=== PATIENT | male | born 1960 | race African-American/Black ===

== ENCOUNTER 2016-10-22 12:15 | Inpatient (IN) | payer OTHER ==
[~2016-10-22] VITALS: Ht 182.9 cm; Wt 99.4 kg
[~2016-10-22 12:15] MED LIST: CEPH-569 PO; CLON0.1T PO; GABA800T PO; HYDR-519 PO; LABE200T28 PO; QUIN1TAB16 PO
[2016-10-22] MEDS ORDERED: MORPHINE SULFATE 4 MG/ML CPJ (NOT FOR IM USE) IV STA (17:11)
[2016-10-22] MEDS ORDERED: SODIUM CHLORIDE 0.9% 1,000 ML IV ONE (17:11)
[2016-10-22 18:02] LABS: BASOPHILS % 0.3 % (0.0-2.0); EOSINOPHILS % 1.4 % (0.0-5.0); HEMATOCRIT. 31.4 % (42.0-52.0); HEMOGLOBIN. 10.8 g/dL (14.0-18.0); LYMPHOCYTES % 55.3 % (20.0-50.0); MEAN CORPUSCULAR HEMOGLOBIN 32.4 pg (28.0-32.0); MEAN CORPUSCULAR VOLUME 94.2 fL (80.0-94.0); PLATELET 109 x1000/uL (130-400); RED BLOOD CELL COUNT 3.33 mill/uL (4.7-6.1); RED CELL DISTRIBUTION WIDTH 13.1 % (11.6-14.6)
[2016-10-22 18:07] LABS: CHLORIDE 103 mEq/L (98-107); INR 1.1; PROTHROMBIN TIME 11.1 sec
[2016-10-22 18:15] LABS: CARBON DIOXIDE 30 mEq/L (21-32)
[2016-10-22 18:25] LABS: CLARITY URINE CLEAR (CLEAR); COLOR URINE YELLOW (YELLOW); GLUCOSE URINE NEGATIVE (NEGATIVE); KETONES URINE NEGATIVE (NEGATIVE); LEUKOCYTE ESTERASE URINE NEGATIVE (NEGATIVE); NITRITE URINE NEGATIVE (NEGATIVE); OCCULT BLOOD URINE 1+ (NEGATIVE); PH URINE 5.5 (4.5-8.0); PROTEIN URINE TRACE (NEGATIVE); SPECIFIC GRAVITY URINE 1.032 (1.005-1.030)
[2016-10-22] MEDS ORDERED: ACETAMINOPHEN 650MG SUPP PR PRN (20:15)
[2016-10-22] MEDS ORDERED: IPRATROPIUM/ALBUTEROL 0.5-3(2.5)MG/3ML NEB INH PRN (20:15)
[2016-10-22] MEDS ORDERED: DIPHENHYDRAMINE 50MG/ML VIAL IV PRN (20:15)
[2016-10-22] MEDS ORDERED: ONDANSETRON HCL 4MG/2ML VIAL IV PRN (20:15)
[2016-10-22] MEDS ORDERED: MORPHINE SULFATE 4 MG/ML CPJ (NOT FOR IM USE) IV ONE (20:30)
[2016-10-22] MEDS ORDERED: DEXT 5%/LACTATED RINGERS 1,000 ML IV SCH (21:00)
[2016-10-23] VITALS (72 sets, daily range): BP systolic 85–175; BP diastolic 48–133
[2016-10-23] MEDS ORDERED: MORPHINE SULFATE 4 MG/ML CPJ (NOT FOR IM USE) IV ONE (00:30)
[2016-10-23] MEDS: HYDROMORPHONE HCL/PF 2MG/ML CPJ IV PRN ×6 (03:02→22:18)
[2016-10-23] MEDS ORDERED: NORMAL SALINE 0.9% 10 ML SYR ONE (07:48)
[2016-10-23] MEDS ORDERED: THROMBIN (BOVINE) 5000 UNITS/VIAL TOP ONE (07:48)
[2016-10-23] MEDS ORDERED: GELATIN SPONGE,ABSORBABLE SZ 100 ONE (07:48)
[2016-10-23] MEDS ORDERED: BACITRACIN 50,000 UNITS/VIAL ONE (07:49)
[2016-10-23] MEDS ORDERED: LIDOCAINE HCL/EPINEPHRINE 0.5%-EPI 1:200,000 50 ML VIAL INFIL ONE (07:49)
[2016-10-23] MEDS: LABETALOL HCL 200MG TABLET PO SCH (09:00)
[2016-10-23] MEDS: CLONIDINE 0.1MG TABLET PO SCH ×2 (09:00→20:33)
[2016-10-23] MEDS: LISINOPRIL 20MG TABLET PO SCH (09:00)
[2016-10-23] MEDS ORDERED: MEDICATION NOT ON FORMULARY EA (Gabapentin (Neurontin) 1 TAB) PO SCH (09:00)
[2016-10-23] MEDS: GABAPENTIN 400MG CAPSULE PO SCH ×5 (09:00→16:12)
[2016-10-23] MEDS: HYDROCHLOROTHIAZIDE 12.5MG CAPSULE PO SCH (09:00)
[2016-10-23] MEDS ORDERED: NICARDIPINE 50 MG in SODIUM CHLORIDE 0.9% 230 ML IV PRN (10:30)
[2016-10-23] MEDS ORDERED: PROPOFOL 200MG/20ML VIAL IV ONE (10:56)
[2016-10-23] MEDS ORDERED: DEXAMETHASONE 4MG/ML 1ML VIAL ONE (10:56)
[2016-10-23] MEDS ORDERED: ROCURONIUM BROMIDE 10MG/ML VIAL 5ML IV ONE ×2 (10:56→11:15)
[2016-10-23] MEDS ORDERED: HYDROMORPHONE HCL/PF 2MG/ML (OR) ONE (11:12)
[2016-10-23] MEDS ORDERED: HYDROMORPHONE HCL/PF 2MG/ML CPJ IV PRN (11:30)
[2016-10-23] MEDS ORDERED: ONDANSETRON HCL 4MG/2ML VIAL IV PRN (11:30)
[2016-10-23] MEDS ORDERED: LABETALOL HCL 20MG/4ML CARPUJECT IV PRN (11:30)
[2016-10-23] MEDS ORDERED: MEPERIDINE HCL/PF 25MG/ML CPJ IV PRN (11:30)
[2016-10-23] MEDS ORDERED: NEOSTIGMINE METHYLSULFATE 1MG/ML 10 ML VIAL ONE (12:16)
[2016-10-23] MEDS ORDERED: GLYCOPYRROLATE 0.2 MG/ML 2ML VIAL ONE (12:17)
[2016-10-23] MEDS ORDERED: DEXT 5%/LACTATED RINGERS 1,000 ML IV SCH (12:45)
[2016-10-23] MEDS ORDERED: DIPHENHYDRAMINE INJ IV PRN (13:15)
[2016-10-23] MEDS ORDERED: ONDANSETRON INJ IV PRN (13:15)
[2016-10-23] MEDS ORDERED: NALOXONE INJ IV PRN (13:15)
[2016-10-23] MEDS ORDERED: HYDROMORPHONE PCA 10MG/50ML IV PRN (13:15)
[2016-10-23] MEDS: MORPHINE SULFATE 2 MG/ML CPJ (NOT FOR IM USE) IV PRN ×3 (13:45→23:28)
[2016-10-23] MEDS: CEFAZOLIN 1000MG PREMIX 50 ML IV SCH ×2 (13:47→21:09)
[2016-10-23] MEDS: DEXAMETHASONE 4MG/ML 1ML VIAL IV SCH ×3 (13:47→23:25)
[2016-10-23] MEDS ORDERED: CEFAZOLIN SODIUM 1000MG/VIAL IV SCH (14:00)
[2016-10-23] MEDS ORDERED: IPRATROPIUM/ALBUTEROL 0.5-3(2.5)MG/3ML NEB HHN PRN (16:00)
[2016-10-23] MEDS: NICARDIPINE 100 MG in SODIUM CHLORIDE 0.9% 60 ML IV PRN ×2 (16:30→23:28)
[2016-10-23 17:47] LABS: *AMPHETAMINES SCREEN URINE NEGATIVE (NEGATIVE); *BARBITURATES SCREEN URINE NEGATIVE (NEGATIVE); *BENZODIAZEPINES SCREEN URINE NEGATIVE (NEGATIVE); *COCAINE SCREEN URINE NEGATIVE (NEGATIVE); CANNABINOID URINE SCREEN NEGATIVE (NEGATIVE); METHADONE URINE SCREEN NEGATIVE (NEGATIVE); OPIATES URINE SCREEN PRESUMTIVE POSITIVE (NEGATIVE); PHENCYCLIDINE URINE SCREEN NEGATIVE (NEGATIVE)
[2016-10-23] MEDS: HYDROCODONE/ACETAMINOPHEN 10/325MG TABLET PO PRN (19:43)
[2016-10-23] MEDS ORDERED: [UNRECOGNIZED DRUG - OTHER] PO SCH (21:00)
[2016-10-23] MEDS ORDERED: QUINAPRIL PO SCH (21:00)
[2016-10-23] MEDS ORDERED: HYDROCHLOROTHIAZIDE PO SCH (21:00)
[2016-10-24] VITALS (82 sets, daily range): BP systolic 111–179; BP diastolic 63–100
[2016-10-24] MEDS: HYDROMORPHONE HCL/PF 2MG/ML CPJ IV PRN ×10 (00:32→23:32)
[2016-10-24] MEDS: MORPHINE SULFATE 2 MG/ML CPJ (NOT FOR IM USE) IV PRN ×4 (01:31→07:57)
[2016-10-24] MEDS: IPRATROPIUM/ALBUTEROL 0.5-3(2.5)MG/3ML NEB HHN SCH ×3 (02:27→20:00)
[2016-10-24] MEDS: HYDROCODONE/ACETAMINOPHEN 10/325MG TABLET PO PRN ×2 (05:19→21:52)
[2016-10-24] MEDS: DEXAMETHASONE 4MG/ML 1ML VIAL IV SCH ×4 (05:27→23:34)
[2016-10-24] MEDS: CEFAZOLIN 1000MG PREMIX 50 ML IV SCH ×3 (05:27→21:34)
[2016-10-24] MEDS: OMEPRAZOLE 20MG CAPSULE EXTENDED RELEASE PO SCH (06:38)
[2016-10-24] MEDS: NICARDIPINE 100 MG in SODIUM CHLORIDE 0.9% 60 ML IV PRN (07:56)
[2016-10-24] MEDS: HYDROCHLOROTHIAZIDE 12.5MG CAPSULE PO SCH (08:00)
[2016-10-24] MEDS: LABETALOL HCL 200MG TABLET PO SCH (08:00)
[2016-10-24] MEDS: GABAPENTIN 400MG CAPSULE PO SCH ×3 (08:00→17:34)
[2016-10-24] MEDS: CLONIDINE 0.1MG TABLET PO SCH ×2 (08:01→21:35)
[2016-10-24] MEDS: LISINOPRIL 20MG TABLET PO SCH (08:01)
[2016-10-24] MEDS: BUDESONIDE 0.5MG/2ML NEB HHN SCH ×2 (08:46→20:00)
[2016-10-24 09:11] LABS: HEMATOCRIT 30.2 % (42.0-52.0); HEMOGLOBIN 10.2 g/dL (14.0-18.0); MEAN CORPUSCULAR HEMOGLOBIN 31.8 pg (28.0-32.0); MEAN CORPUSCULAR VOLUME 94.3 fL (80.0-94.0); PLATELET 106 x1000/uL (130-400); RED BLOOD CELL COUNT 3.21 mill/uL (4.7-6.1); RED CELL DISTRIBUTION WIDTH 12.8 % (11.6-14.6)
[2016-10-24] MEDS: SENNOSIDES/DOCUSATE SOD 8.6/50MG TABLET PO SCH (21:35)
[2016-10-25] VITALS (30 sets, daily range): BP systolic 102–159; BP diastolic 27–98
[2016-10-25] MEDS: HYDROMORPHONE HCL/PF 2MG/ML CPJ IV PRN ×10 (01:36→21:49)
[2016-10-25] MEDS: IPRATROPIUM/ALBUTEROL 0.5-3(2.5)MG/3ML NEB HHN SCH ×5 (02:02→20:44)
[2016-10-25] MEDS: CEFAZOLIN 1000MG PREMIX 50 ML IV SCH ×2 (05:29→13:56)
[2016-10-25] MEDS: OMEPRAZOLE 20MG CAPSULE EXTENDED RELEASE PO SCH (05:30)
[2016-10-25] MEDS: DEXAMETHASONE 4MG/ML 1ML VIAL IV SCH ×2 (05:30→11:50)
[2016-10-25 05:32] LABS: BASOPHILS % 0.1 % (0.0-2.0); HEMATOCRIT. 29.5 % (42.0-52.0); HEMOGLOBIN. 10.1 g/dL (14.0-18.0); LYMPHOCYTES % 22.2 % (20.0-50.0); MEAN CORPUSCULAR HEMOGLOBIN 32.1 pg (28.0-32.0); MEAN CORPUSCULAR VOLUME 93.8 fL (80.0-94.0); MEAN PLATELET VOLUME 8.5 fl (7.4-10.4); MONOCYTES % 4.6 % (2.0-8.0); NEUTROPHILS % 73.1 % (40.0-76.0); PLATELET 108 x1000/uL (130-400); RED BLOOD CELL COUNT 3.14 mill/uL (4.7-6.1); RED CELL DISTRIBUTION WIDTH 13.1 % (11.6-14.6)
[2016-10-25 05:59] LABS: CARBON DIOXIDE 30 mEq/L (21-32); CHLORIDE 93 mEq/L (98-107)
[2016-10-25] MEDS: HYDROCHLOROTHIAZIDE 12.5MG CAPSULE PO SCH (08:00)
[2016-10-25] MEDS: LABETALOL HCL 200MG TABLET PO SCH (08:00)
[2016-10-25] MEDS: LISINOPRIL 20MG TABLET PO SCH (08:00)
[2016-10-25] MEDS: GABAPENTIN 400MG CAPSULE PO SCH ×3 (08:01→16:05)
[2016-10-25] MEDS: CLONIDINE 0.1MG TABLET PO SCH ×2 (08:01→21:49)
[2016-10-25] MEDS: HYDROCODONE/ACETAMINOPHEN 10/325MG TABLET PO PRN ×3 (09:07→23:01)
[2016-10-25] MEDS: BUDESONIDE 0.5MG/2ML NEB HHN SCH ×2 (10:39→20:47)
[2016-10-25] MEDS: SENNOSIDES/DOCUSATE SOD 8.6/50MG TABLET PO SCH (21:49)
[2016-10-26] VITALS: BP 144/96
[2016-10-26] MEDS: HYDROMORPHONE HCL/PF 2MG/ML CPJ IV PRN ×11 (00:32→23:08)
[2016-10-26] MEDS: IPRATROPIUM/ALBUTEROL 0.5-3(2.5)MG/3ML NEB HHN SCH ×4 (01:50→21:32)
[2016-10-26 04:00] VITALS: BP 141/72
[2016-10-26] MEDS: OMEPRAZOLE 20MG CAPSULE EXTENDED RELEASE PO SCH (07:42)
[2016-10-26 08:00] VITALS: BP 137/66
[2016-10-26 08:39] LABS: BASOPHILS % 0.1 % (0.0-2.0); HEMATOCRIT. 30.4 % (42.0-52.0); HEMOGLOBIN. 10.4 g/dL (14.0-18.0); LYMPHOCYTES % 33.9 % (20.0-50.0); MEAN CORPUSCULAR HEMOGLOBIN 32.1 pg (28.0-32.0); MEAN CORPUSCULAR VOLUME 93.6 fL (80.0-94.0); MEAN PLATELET VOLUME 8.7 fl (7.4-10.4); MONOCYTES % 6.6 % (2.0-8.0); NEUTROPHILS % 59.4 % (40.0-76.0); PLATELET 119 x1000/uL (130-400); RED BLOOD CELL COUNT 3.25 mill/uL (4.7-6.1); RED CELL DISTRIBUTION WIDTH 13.1 % (11.6-14.6)
[2016-10-26] MEDS: BUDESONIDE 0.5MG/2ML NEB HHN SCH ×2 (08:44→21:00)
[2016-10-26 08:51] LABS: CARBON DIOXIDE 31 mEq/L (21-32); CHLORIDE 92 mEq/L (98-107)
[2016-10-26] MEDS: GABAPENTIN 400MG CAPSULE PO SCH ×3 (09:23→17:38)
[2016-10-26] MEDS: HYDROCHLOROTHIAZIDE 12.5MG CAPSULE PO SCH (09:24)
[2016-10-26] MEDS: CLONIDINE 0.1MG TABLET PO SCH ×2 (09:24→20:21)
[2016-10-26] MEDS: LABETALOL HCL 200MG TABLET PO SCH (09:24)
[2016-10-26] MEDS: LISINOPRIL 20MG TABLET PO SCH (09:52)
[2016-10-26 12:00] VITALS: BP 91/68
[2016-10-26 16:00] VITALS: BP 135/82
[2016-10-26 20:00] VITALS: BP 120/75
[2016-10-26] MEDS: SENNOSIDES/DOCUSATE SOD 8.6/50MG TABLET PO SCH (20:21)
[2016-10-27] VITALS (7 sets, daily range): BP systolic 92–147; BP diastolic 68–93
[2016-10-27] MEDS: HYDROMORPHONE HCL/PF 2MG/ML CPJ IV PRN ×12 (01:08→23:35)
[2016-10-27] MEDS: IPRATROPIUM/ALBUTEROL 0.5-3(2.5)MG/3ML NEB HHN SCH ×4 (02:55→20:55)
[2016-10-27] MEDS: OMEPRAZOLE 20MG CAPSULE EXTENDED RELEASE PO SCH (07:06)
[2016-10-27] MEDS: CLONIDINE 0.1MG TABLET PO SCH ×3 (09:00→21:49)
[2016-10-27] MEDS: HYDROCHLOROTHIAZIDE 12.5MG CAPSULE PO SCH (09:06)
[2016-10-27] MEDS: LABETALOL HCL 200MG TABLET PO SCH (09:07)
[2016-10-27] MEDS: GABAPENTIN 400MG CAPSULE PO SCH ×3 (09:07→17:04)
[2016-10-27] MEDS: LISINOPRIL 20MG TABLET PO SCH (09:08)
[2016-10-27] MEDS: SENNOSIDES/DOCUSATE SOD 8.6/50MG TABLET PO SCH (21:24)
[2016-10-28] VITALS: BP 97/54
[2016-10-28] MEDS: IPRATROPIUM/ALBUTEROL 0.5-3(2.5)MG/3ML NEB HHN SCH ×2 (02:08→09:07)
[2016-10-28] MEDS: HYDROMORPHONE HCL/PF 2MG/ML CPJ IV PRN ×4 (02:16→11:21)
[2016-10-28 04:00] VITALS: BP 135/81
[2016-10-28 08:00] VITALS: BP 109/72
[2016-10-28] MEDS: LISINOPRIL 20MG TABLET PO SCH (08:57)
[2016-10-28] MEDS: GABAPENTIN 400MG CAPSULE PO SCH ×2 (08:59→13:39)
[2016-10-28] MEDS: LABETALOL HCL 200MG TABLET PO SCH (09:00)
[2016-10-28] MEDS ORDERED: FAMOTIDINE 20MG TABLET PO SCH (09:00)
[2016-10-28] MEDS: CLONIDINE 0.1MG TABLET PO SCH (09:01)
[2016-10-28] MEDS: HYDROCHLOROTHIAZIDE 12.5MG CAPSULE PO SCH (09:07)
[2016-10-28 12:00] VITALS: BP 98/59
[2016-10-28 15:04] VITALS: BP 90/59
== END 2016-10-28 16:07 | disposition home or self-care (01) | DRG 460 ==
LOC: ER 12:15 → 6EST 21:41 → MICUNO 10-23 10:57 → 6EST 10-25 16:49
PROVIDERS: ADMIT Internal Medicine Nephrology; ATTEND Internal Medicine Nephrology
PROC: 0RG60A1 (ICD-10-PCS; 2016-10-23)
PROC: 00NX0ZZ Release Thoracic Spinal Cord, Open Approach (ICD-10-PCS; principal; 2016-10-23 09:30)
DX: M51.04 Intervertebral disc disorders with myelopathy, thoracic region (principal); C85.90 Non-Hodgkin lymphoma, unspecified, unspecified site; G82.20 Paraplegia, unspecified; I10 Essential (primary) hypertension; D64.9 Anemia, unspecified; M48.04 Spinal stenosis, thoracic region; F17.210 Nicotine dependence, cigarettes, uncomplicated; G89.29 Other chronic pain; G62.89 Other specified polyneuropathies; W19.XXXA Unspecified fall, initial encounter; J44.9 Chronic obstructive pulmonary disease, unspecified; M54.12 Radiculopathy, cervical region; Z86.14 Personal history of Methicillin resistant Staphylococcus aureus infection; Z85.6 Personal history of leukemia; Z92.21 Personal history of antineoplastic chemotherapy; Z79.1 Long term (current) use of non-steroidal anti-inflammatories (NSAID); Z79.899 Other long term (current) drug therapy; Z90.49 Acquired absence of other specified parts of digestive tract
CPT/HCPCS: 36415; 71010; 72070; 72146; 80048; 80053; 80305; 81001; 83690; 83735; 85025; 85027; 85610; 88304; 88311; 93005; 93970; 94640; 96361; 96374; 96375; 96376; 97110; 97116; 97163; 97166; 97530; 97535; 99285; A4216; C1893; J0690; J1100; J1170; J2270; J2405; J2704; J2710; J3490; J7030; J7050; J7620; J7626

== ENCOUNTER 2017-03-06 14:45 | Inpatient (IN) | payer OTHER ==
[~2017-03-06] VITALS: Ht 182.9 cm; Wt 112.2 kg
[~2017-03-06 14:45] MED LIST changes: -CEPH-569 PO; -HYDR-519 PO
[2017-03-06 17:00] LABS: BASOPHILS % 0.4 % (0.0-2.0); EOSINOPHILS % 1.6 % (0.0-5.0); HEMATOCRIT. 36.4 % (42.0-52.0); HEMOGLOBIN. 12.4 g/dL (14.0-18.0); LYMPHOCYTES % 47.7 % (20.0-50.0); MEAN CORPUSCULAR HEMOGLOBIN 31.9 pg (28.0-32.0); MEAN CORPUSCULAR VOLUME 93.6 fL (80.0-94.0); MEAN PLATELET VOLUME 7.5 fl (7.4-10.4); MONOCYTES % 6.4 % (2.0-8.0); NEUTROPHILS % 43.9 % (40.0-76.0); PLATELET 144 x1000/uL (130-400); RED BLOOD CELL COUNT 3.89 mill/uL (4.7-6.1); RED CELL DISTRIBUTION WIDTH 13.5 % (11.6-14.6)
[2017-03-06 17:04] LABS: PROTHROMBIN TIME 10.8 sec (9.4-11.6)
[2017-03-06 17:07] LABS: CHLORIDE 99 mEq/L (98-107)
[2017-03-06 17:12] LABS: CARBON DIOXIDE 32 mEq/L (21-32)
[2017-03-06 20:00] VITALS: BP 157/95
[2017-03-06 20:50] VITALS: BP 154/95
[2017-03-06] MEDS ORDERED: HYDR-4094 PO (20:50)
[2017-03-06] MEDS ORDERED: CLONIDINE 0.1MG TABLET PO SCH (22:30)
[2017-03-06] MEDS ORDERED: DEXT 5%/0.45% NACL 1000ML 1,000 ML IV SCH (22:30)
[2017-03-06] MEDS: HYDROMORPHONE HCL/PF 2MG/ML CPJ IV PRN (22:40)
[2017-03-06] MEDS ORDERED: CLONIDINE 0.1MG TABLET PO PRN (23:30)
[2017-03-06] MEDS ORDERED: LORAZEPAM 2MG/ML CPJ IV PRN (23:30)
[2017-03-06] MEDS ORDERED: LORAZEPAM 0.5MG TABLET PO PRN (23:45)
[2017-03-06] MEDS: GABAPENTIN 400MG CAPSULE PO SCH (23:51)
[2017-03-06] MEDS: LABETALOL HCL 200MG TABLET PO SCH (23:52)
[2017-03-07] VITALS (31 sets, daily range): BP systolic 96–199; BP diastolic 60–130
[2017-03-07] MEDS: HYDROCODONE/ACETAMINOPHEN 10/325MG TABLET PO PRN ×3 (00:45→21:10)
[2017-03-07] MEDS: HYDROMORPHONE HCL/PF 2MG/ML CPJ IV PRN ×8 (02:45→22:29)
[2017-03-07] MEDS ORDERED: GELATIN SPONGE,ABSORBABLE SZ 100 ONE (08:10)
[2017-03-07] MEDS ORDERED: THROMBIN (BOVINE) 5000 UNITS/VIAL TOP ONE (08:10)
[2017-03-07] MEDS ORDERED: BACITRACIN 50,000 UNITS/VIAL ONE (08:11)
[2017-03-07] MEDS ORDERED: NORMAL SALINE 0.9% 10 ML SYR ONE (08:11)
[2017-03-07] MEDS ORDERED: ENOXAPARIN 30MG/0.3ML SYR SUBCUT SCH (09:00)
[2017-03-07] MEDS ORDERED: LABETALOL HCL 200MG TABLET PO SCH (09:00)
[2017-03-07] MEDS: LABETALOL HCL 200MG TABLET PO SCH (09:00)
[2017-03-07] MEDS: GABAPENTIN 400MG CAPSULE PO SCH ×5 (09:00→21:09)
[2017-03-07] MEDS ORDERED: ENOXAPARIN 40MG/0.4ML SYR SUBCUT SCH (09:00)
[2017-03-07] MEDS ORDERED: LIDOCAINE 1%/EPI 1:200,000 10 ML VIAL IJ ONE (11:30)
[2017-03-07] MEDS ORDERED: PROPOFOL 10MG/ML 100ML 0 ML IV ONE (13:49)
[2017-03-07] MEDS ORDERED: EPHEDRINE SULFATE 50MG/ML VIAL ONE (15:14)
[2017-03-07] MEDS ORDERED: CEFAZOLIN SODIUM 1000MG/VIAL ONE (15:14)
[2017-03-07] MEDS ORDERED: PROPOFOL 200MG/20ML VIAL IV ONE (15:14)
[2017-03-07] MEDS ORDERED: DEXAMETHASONE 4MG/ML 1ML VIAL ONE (15:14)
[2017-03-07] MEDS ORDERED: ROCURONIUM BROMIDE 10MG/ML VIAL 5ML IV ONE ×2 (15:14→15:19)
[2017-03-07] MEDS ORDERED: LABETALOL HCL 20MG/4ML CARPUJECT IV PRN (15:30)
[2017-03-07] MEDS ORDERED: ONDANSETRON HCL 4MG/2ML VIAL IV PRN (15:30)
[2017-03-07] MEDS ORDERED: MEPERIDINE HCL/PF 25MG/ML CPJ IV PRN (15:30)
[2017-03-07] MEDS ORDERED: GLYCOPYRROLATE 0.2 MG/ML 2ML VIAL ONE (16:00)
[2017-03-07] MEDS ORDERED: NEOSTIGMINE METHYLSULFATE 1MG/ML 10 ML VIAL ONE (16:00)
[2017-03-07] MEDS: DEXT 5%/LACTATED RINGERS 1,000 ML IV SCH ×2 (17:20→21:20)
[2017-03-07] MEDS: DEXAMETHASONE 4MG/ML 1ML VIAL IV SCH (17:51)
[2017-03-07] MEDS: NICARDIPINE 100 MG in SODIUM CHLORIDE 0.9% 60 ML IV PRN (21:33)
[2017-03-07] MEDS: CEFAZOLIN 1000MG PREMIX 50 ML IV SCH (21:48)
[2017-03-07] MEDS ORDERED: CEFAZOLIN SODIUM 1000MG/VIAL IV SCH (22:00)
[2017-03-08] VITALS (86 sets, daily range): BP systolic 103–295; BP diastolic 24–294
[2017-03-08] MEDS ORDERED: DEXT 5%/0.9% NACL 1,000 ML IV SCH
[2017-03-08] MEDS: DEXAMETHASONE 4MG/ML 1ML VIAL IV SCH ×4 (00:14→17:58)
[2017-03-08] MEDS: HYDROCODONE/APAP 7.5/325MG 1 TAB TABLET PO PRN ×2 (00:14→05:23)
[2017-03-08] MEDS: HYDROCODONE/ACETAMINOPHEN 10/325MG TABLET PO PRN ×4 (01:20→20:09)
[2017-03-08 05:55] LABS: BASOPHILS % 0.2 % (0.0-2.0); HEMATOCRIT. 34.2 % (42.0-52.0); HEMOGLOBIN. 11.6 g/dL (14.0-18.0); LYMPHOCYTES % 24.8 % (20.0-50.0); MEAN CORPUSCULAR HEMOGLOBIN 31.9 pg (28.0-32.0); MEAN CORPUSCULAR VOLUME 93.9 fL (80.0-94.0); MEAN PLATELET VOLUME 7.8 fl (7.4-10.4); PLATELET 120 x1000/uL (130-400); RED BLOOD CELL COUNT 3.65 mill/uL (4.7-6.1); RED CELL DISTRIBUTION WIDTH 13.4 % (11.6-14.6)
[2017-03-08] MEDS: DEXT 5%/LACTATED RINGERS 1,000 ML IV SCH (06:00)
[2017-03-08 06:21] LABS: CHLORIDE 97 mEq/L (98-107)
[2017-03-08 06:31] LABS: CARBON DIOXIDE 25 mEq/L (21-32); PHOSPHORUS 2.6 mg/dL (2.5-4.9)
[2017-03-08] MEDS: CEFAZOLIN 1000MG PREMIX 50 ML IV SCH ×3 (06:35→21:28)
[2017-03-08] MEDS: HYDROMORPHONE HCL/PF 2MG/ML CPJ IV PRN ×4 (06:36→20:09)
[2017-03-08] MEDS: LABETALOL HCL 200MG TABLET PO SCH ×2 (08:45→10:45)
[2017-03-08] MEDS: GABAPENTIN 400MG CAPSULE PO SCH ×5 (08:45→20:08)
[2017-03-08] MEDS: NICARDIPINE 100 MG in SODIUM CHLORIDE 0.9% 60 ML IV PRN ×2 (09:10→21:30)
[2017-03-08] MEDS ORDERED: IPRATROPIUM/ALBUTEROL 0.5-3(2.5)MG/3ML NEB HHN PRN (10:15)
[2017-03-08] MEDS ORDERED: HYDROMORPHONE HCL/PF 2MG/ML CPJ IV NR (10:15)
[2017-03-08] MEDS ORDERED: PANTOPRAZOLE SODIUM 40 MG/VIAL IV NR (10:30)
[2017-03-08] MEDS ORDERED: NICOTINE 21MG PATCH TD SCH (11:00)
[2017-03-08] MEDS: IPRATROPIUM/ALBUTEROL 0.5-3(2.5)MG/3ML NEB HHN SCH (20:54)
[2017-03-08] MEDS: BUDESONIDE 0.5MG/2ML NEB HHN SCH (20:55)
[2017-03-09] VITALS (44 sets, daily range): BP systolic 95–156; BP diastolic 59–101
[2017-03-09] MEDS: HYDROMORPHONE HCL/PF 2MG/ML CPJ IV PRN ×9 (00:01→22:05)
[2017-03-09] MEDS: DEXAMETHASONE 4MG/ML 1ML VIAL IV SCH ×4 (00:01→18:25)
[2017-03-09] MEDS: HYDROCODONE/ACETAMINOPHEN 10/325MG TABLET PO PRN ×4 (00:12→14:35)
[2017-03-09] MEDS: IPRATROPIUM/ALBUTEROL 0.5-3(2.5)MG/3ML NEB HHN SCH ×4 (01:29→19:58)
[2017-03-09] MEDS: HYDROCODONE/APAP 7.5/325MG 1 TAB TABLET PO PRN (02:22)
[2017-03-09] MEDS: CEFAZOLIN 1000MG PREMIX 50 ML IV SCH ×3 (05:41→22:08)
[2017-03-09] MEDS: BUDESONIDE 0.5MG/2ML NEB HHN SCH ×2 (08:42→19:59)
[2017-03-09] MEDS: GABAPENTIN 400MG CAPSULE PO SCH ×4 (08:59→20:06)
[2017-03-09] MEDS: PANTOPRAZOLE SODIUM 40 MG/VIAL IV SCH (08:59)
[2017-03-09] MEDS: LABETALOL HCL 200MG TABLET PO SCH (09:00)
[2017-03-09] MEDS: NICOTINE 21MG PATCH TD SCH (09:00)
[2017-03-09] MEDS ORDERED: HYDROCODONE/APAP 7.5/325MG 1 TAB TABLET PO PRN (09:15)
[2017-03-10] VITALS: BP 133/88
[2017-03-10] MEDS: DEXAMETHASONE 4MG/ML 1ML VIAL IV SCH ×4 (00:32→18:33)
[2017-03-10] MEDS: HYDROMORPHONE HCL/PF 2MG/ML CPJ IV PRN ×9 (00:34→21:32)
[2017-03-10] MEDS: IPRATROPIUM/ALBUTEROL 0.5-3(2.5)MG/3ML NEB HHN SCH ×4 (01:00→20:05)
[2017-03-10] MEDS: HYDROCODONE/ACETAMINOPHEN 10/325MG TABLET PO PRN (03:59)
[2017-03-10 04:00] VITALS: BP 127/82
[2017-03-10] MEDS: DEXT 5%/LACTATED RINGERS 1,000 ML IV SCH (04:03)
[2017-03-10 08:00] VITALS: BP 117/79
[2017-03-10] MEDS: PANTOPRAZOLE SODIUM 40 MG/VIAL IV SCH (08:59)
[2017-03-10] MEDS: GABAPENTIN 400MG CAPSULE PO SCH ×2 (09:01→13:13)
[2017-03-10] MEDS: LABETALOL HCL 200MG TABLET PO SCH (09:01)
[2017-03-10] MEDS: BUDESONIDE 0.5MG/2ML NEB HHN SCH ×2 (10:14→20:05)
[2017-03-10 10:36] LABS: HEMATOCRIT. 32.5 % (42.0-52.0); HEMOGLOBIN. 10.8 g/dL (14.0-18.0); MEAN CORPUSCULAR HEMOGLOBIN 30.8 pg (28.0-32.0); MEAN CORPUSCULAR VOLUME 92.3 fL (80.0-94.0); MEAN PLATELET VOLUME 7.7 fl (7.4-10.4); PLATELET 136 x1000/uL (130-400); RED BLOOD CELL COUNT 3.52 mill/uL (4.7-6.1); RED CELL DISTRIBUTION WIDTH 13.5 % (11.6-14.6)
[2017-03-10 11:25] LABS: CHLORIDE 96 mEq/L (98-107)
[2017-03-10 11:56] LABS: CARBON DIOXIDE 26 mEq/L (21-32)
[2017-03-10 12:00] VITALS: BP 109/86
[2017-03-10 12:20] LABS: PLATELET ESTIMATE NORMAL
[2017-03-10] MEDS: NICOTINE 21MG PATCH TD SCH (13:10)
[2017-03-10] MEDS ORDERED: OXYCODONE HCL/ACETAMINOPHEN 5/325MG TABLET PO PRN ×2 (14:00)
[2017-03-10] MEDS ORDERED: HYDROMORPHONE HCL/PF 2MG/ML CPJ IV NR (18:00)
[2017-03-10] MEDS ORDERED: SODIUM CHLORIDE 0.9% 1,000 ML IV SCH (18:00)
[2017-03-10] MEDS ORDERED: DOCUSATE SODIUM 100MG CAPSULE PO PRN (18:00)
[2017-03-10 20:00] VITALS: BP 138/88
[2017-03-10] MEDS: METHOCARBAMOL 750MG TABLET PO SCH (23:05)
[2017-03-11] VITALS: BP 127/74
[2017-03-11] MEDS: DEXAMETHASONE 4MG/ML 1ML VIAL IV SCH ×5 (00:41→23:35)
[2017-03-11] MEDS: HYDROMORPHONE HCL/PF 2MG/ML CPJ IV PRN ×7 (00:42→23:37)
[2017-03-11] MEDS: IPRATROPIUM/ALBUTEROL 0.5-3(2.5)MG/3ML NEB HHN SCH ×2 (01:45→07:54)
[2017-03-11 04:00] VITALS: BP 121/81
[2017-03-11] MEDS: METHOCARBAMOL 750MG TABLET PO SCH ×3 (05:08→21:30)
[2017-03-11 07:27] LABS: CHLORIDE 98 mEq/L (98-107)
[2017-03-11 07:38] LABS: CARBON DIOXIDE 24 mEq/L (21-32)
[2017-03-11] MEDS: BUDESONIDE 0.5MG/2ML NEB HHN SCH (07:54)
[2017-03-11 08:00] VITALS: BP 125/76
[2017-03-11] MEDS: NICOTINE 21MG PATCH TD SCH (08:37)
[2017-03-11] MEDS: LABETALOL HCL 200MG TABLET PO SCH (08:37)
[2017-03-11 12:00] VITALS: BP 123/84
[2017-03-11 16:00] VITALS: BP 147/99
[2017-03-11] MEDS ORDERED: HYDROCODONE/ACETAMINOPHEN 10/325MG TABLET PO PRN (17:30)
[2017-03-11] MEDS ORDERED: HYDROCODONE/ACETAMINOPHEN 5/325MG TABLET PO PRN (17:30)
[2017-03-11 20:00] VITALS: BP 159/93
[2017-03-12] VITALS: BP 132/87
[2017-03-12] MEDS: HYDROMORPHONE HCL/PF 2MG/ML CPJ IV PRN ×3 (03:37→09:44)
[2017-03-12 04:00] VITALS: BP 130/82
[2017-03-12] MEDS: DEXAMETHASONE 4MG/ML 1ML VIAL IV SCH (06:43)
[2017-03-12] MEDS: METHOCARBAMOL 750MG TABLET PO SCH (06:43)
[2017-03-12 08:00] VITALS: BP 117/86
[2017-03-12] MEDS: LABETALOL HCL 200MG TABLET PO SCH (09:44)
[2017-03-12] MEDS: NICOTINE 21MG PATCH TD SCH (09:46)
[2017-03-12 10:50] VITALS: BP 117/86
[2017-03-12 12:00] VITALS: BP 135/86
== END 2017-03-12 12:30 | disposition home health service (06) | DRG 471 ==
LOC: ER 15:13 → 6EST 17:27 → ENRESERV 18:44 → MICUSO 03-07 17:13 → 6EST 03-09 22:45
PROVIDERS: ADMIT Internal Medicine Nephrology; ATTEND Internal Medicine Nephrology
PROC: 00NW0ZZ Release Cervical Spinal Cord, Open Approach (ICD-10-PCS; 2017-03-07)
PROC: 0RG20AJ Fusion of 2 or more Cervical Vertebral Joints with Interbody Fusion Device, Posterior Approach, Anterior Column, Open Approach (ICD-10-PCS; principal; 2017-03-07 13:30)
DX: M48.02 Spinal stenosis, cervical region (principal); G82.50 Quadriplegia, unspecified; E87.1 Hypo-osmolality and hyponatremia; G95.9 Disease of spinal cord, unspecified; D64.9 Anemia, unspecified; E86.0 Dehydration; I10 Essential (primary) hypertension; F11.10 Opioid abuse, uncomplicated; M54.9 Dorsalgia, unspecified; F17.210 Nicotine dependence, cigarettes, uncomplicated; G89.4 Chronic pain syndrome; Z76.5 Malingerer [conscious simulation]; Z85.6 Personal history of leukemia; Z85.72 Personal history of non-Hodgkin lymphomas; Z86.14 Personal history of Methicillin resistant Staphylococcus aureus infection; Z98.1 Arthrodesis status; Z79.1 Long term (current) use of non-steroidal anti-inflammatories (NSAID); Z79.899 Other long term (current) drug therapy; Z90.49 Acquired absence of other specified parts of digestive tract
CPT/HCPCS: 36415; 71010; 72040; 72141; 80048; 80053; 83735; 84100; 85025; 85610; 86850; 86900; 88304; 88311; 93970; 94640; 94664; 97110; 97116; 97163; 97166; 99285; A4216; C9113; J0171; J0690; J1100; J1170; J2704; J2710; J3490; J7030; J7050; J7121; J7620; J7626; L0172

== ENCOUNTER 2018-05-24 02:28 | Inpatient (IN) | payer OTHER ==
[~2018-05-24] VITALS: Ht 190.5 cm; Wt 111.1 kg
[~2018-05-24 02:28] MED LIST changes: -CLON0.1T PO; +HYDR-4094 PO
[2018-05-24 03:10] LABS: HEMATOCRIT. 33.5 % (42.0-52.0); HEMOGLOBIN. 11.1 g/dL (14.0-18.0); MEAN CORPUSCULAR HEMOGLOBIN 30.1 pg (28.0-32.0); MEAN CORPUSCULAR VOLUME 91.1 fL (80.0-94.0); MEAN PLATELET VOLUME 7.3 fl (7.4-10.4); PLATELET 139 x1000/uL (130-400); RED BLOOD CELL COUNT 3.68 mill/uL (4.7-6.1); RED CELL DISTRIBUTION WIDTH 13.6 % (11.6-14.6)
[2018-05-24 03:16] LABS: CHLORIDE 100 mEq/L (98-107)
[2018-05-24 03:19] LABS: INR 1.1; PARTIAL THROMBOPLASTIN TIME 27.5 sec (23.4-31.0); PROTHROMBIN TIME 11.1 sec (9.1-11.1)
[2018-05-24] MEDS ORDERED: CHOL500051 PO (04:17)
[2018-05-24] MEDS ORDERED: OXYC10TA48 PO (04:17)
[2018-05-24] MEDS ORDERED: SULF-293 MT (04:17)
[2018-05-24] MEDS ORDERED: QUIN40TA14 PO (04:17)
[2018-05-24] MEDS ORDERED: OXYC10SY PO (04:17)
[2018-05-24] MEDS ORDERED: GABA800T97 PO (04:17)
[2018-05-24] MEDS ORDERED: HYDR-4009 MT (04:17)
[2018-05-24] MEDS ORDERED: OXYCODONE HCL 10MG TABLET SR 12HR PO ONE (04:45)
[2018-05-24] MEDS ORDERED: MORPHINE SULFATE 4 MG/ML CPJ (NOT FOR IM USE) IV SCH (04:45)
[2018-05-24 05:13] LABS: ATYPICAL LYMPHOCYTES 6; PLATELET ESTIMATE NORMAL
[2018-05-24] MEDS ORDERED: OXYCODONE HCL 5MG TABLET PO ONE (06:15)
[2018-05-24] MEDS ORDERED: ACETAMINOPHEN 325MG TABLET PO NR (06:59)
[2018-05-24] MEDS ORDERED: VANCOMYCIN 1 G PREMIX 200 ML IV NR (07:00)
[2018-05-24] MEDS ORDERED: PIPERACILLIN/TAZ 3.375G PREMIX 50 ML IV NR (07:00)
[2018-05-24 09:00] VITALS: BP 152/83
[2018-05-24 12:00] VITALS: BP 121/65
[2018-05-24] MEDS ORDERED: DOCUSATE SODIUM 100MG CAPSULE PO PRN (13:30)
[2018-05-24] MEDS ORDERED: DIPHENHYDRAMINE 50MG/ML VIAL IV PRN (13:30)
[2018-05-24] MEDS ORDERED: CLONIDINE 0.1MG TABLET PO PRN (13:30)
[2018-05-24] MEDS: ONDANSETRON HCL 4MG/2ML INJ IV PRN (14:37)
[2018-05-24] MEDS: HYDROCODONE/ACETAMINOPHEN 5/325MG TABLET PO PRN (14:39)
[2018-05-24] MEDS: ACETAMINOPHEN 325MG TABLET PO PRN (17:01)
[2018-05-24] MEDS: CEFEPIME 1,000 MG in DEXTROSE 5% WATER 50 ML IV SCH (19:00)
[2018-05-24 20:00] VITALS: BP 127/64
[2018-05-24] MEDS: VANCOMYCIN 1500MG in DEXTROSE 5% WATER 250ML IV SCH (22:39)
[2018-05-25] VITALS: BP 132/74
[2018-05-25 04:00] VITALS: BP 116/64
[2018-05-25] MEDS: CEFEPIME 1,000 MG in DEXTROSE 5% WATER 50 ML IV SCH ×2 (06:18→17:05)
[2018-05-25 06:52] LABS: CHLORIDE 99 mEq/L (98-107)
[2018-05-25 06:55] LABS: HEMATOCRIT. 28.6 % (42.0-52.0); HEMOGLOBIN. 9.6 g/dL (14.0-18.0); MEAN CORPUSCULAR HEMOGLOBIN 30.5 pg (28.0-32.0); MEAN CORPUSCULAR VOLUME 90.8 fL (80.0-94.0); MEAN PLATELET VOLUME 7.4 fl (7.4-10.4); PLATELET 137 x1000/uL (130-400); RED BLOOD CELL COUNT 3.15 mill/uL (4.7-6.1); RED CELL DISTRIBUTION WIDTH 13.9 % (11.6-14.6)
[2018-05-25 08:00] VITALS: BP 121/66
[2018-05-25] MEDS: LOSARTAN POTASSIUM 25 MG TABLET PO SCH (09:35)
[2018-05-25] MEDS: VANCOMYCIN 1500MG in DEXTROSE 5% WATER 250ML IV SCH ×2 (09:35→20:00)
[2018-05-25 12:00] VITALS: BP 111/67
[2018-05-25 16:00] VITALS: BP 122/73
[2018-05-25 20:00] VITALS: BP 97/61
[2018-05-25] MEDS: HYDROCODONE/ACETAMINOPHEN 5/325MG TABLET PO PRN (21:33)
[2018-05-26] VITALS: BP 109/67
[2018-05-26 03:38] LABS: ATYPICAL LYMPHOCYTES 14; PLATELET ESTIMATE NORMAL
[2018-05-26 04:00] VITALS: BP 100/73
[2018-05-26] MEDS: CEFEPIME 1,000 MG in DEXTROSE 5% WATER 50 ML IV SCH ×2 (06:10→18:41)
[2018-05-26 07:22] LABS: HEMATOCRIT. 27.7 % (42.0-52.0); HEMOGLOBIN. 9.2 g/dL (14.0-18.0); MEAN CORPUSCULAR HEMOGLOBIN 30.1 pg (28.0-32.0); MEAN CORPUSCULAR VOLUME 90.4 fL (80.0-94.0); MEAN PLATELET VOLUME 7.6 fl (7.4-10.4); PLATELET 132 x1000/uL (130-400); RED BLOOD CELL COUNT 3.07 mill/uL (4.7-6.1); RED CELL DISTRIBUTION WIDTH 13.8 % (11.6-14.6)
[2018-05-26 07:45] LABS: CHLORIDE 99 mEq/L (98-107)
[2018-05-26 08:00] VITALS: BP_SYST 107; BP_SYST 161; BP_DIAS 75; BP_DIAS 84
[2018-05-26] MEDS: LOSARTAN POTASSIUM 25 MG TABLET PO SCH (08:44)
[2018-05-26] MEDS: VANCOMYCIN 1500MG in DEXTROSE 5% WATER 250ML IV SCH (08:48)
[2018-05-26 10:38] LABS: PLATELET ESTIMATE NORMAL
[2018-05-26 12:00] VITALS: BP 122/73
[2018-05-26] MEDS ORDERED: NA PHOS,M-B/NA PHOS,DI-BA ENEMA 118ML PR NR (13:15)
[2018-05-26] MEDS ORDERED: BISACODYL 10MG SUPP PR PRN (13:15)
[2018-05-26 16:00] VITALS: BP 112/71
[2018-05-26] MEDS: DOCUSATE SODIUM 100MG CAPSULE PO SCH (17:00)
[2018-05-26 20:00] VITALS: BP 107/63
[2018-05-26] MEDS: POLYETHYLENE GLYCOL 3350 (17GM) 1 DOSE PACK PO SCH (21:00)
[2018-05-26] MEDS: VANCOMYCIN 1250MG in DEXTROSE 5% WATER 250ML IV SCH (21:44)
[2018-05-26] MEDS: HYDROCODONE/ACETAMINOPHEN 5/325MG TABLET PO PRN (21:56)
[2018-05-27] VITALS (7 sets, daily range): BP systolic 98–120; BP diastolic 60–69
[2018-05-27] MEDS: ONDANSETRON HCL 4MG/2ML INJ IV PRN (00:38)
[2018-05-27] MEDS: HYDROCODONE/ACETAMINOPHEN 5/325MG TABLET PO PRN ×5 (03:15→20:53)
[2018-05-27] MEDS: CEFEPIME 1,000 MG in DEXTROSE 5% WATER 50 ML IV SCH ×2 (06:30→17:13)
[2018-05-27] MEDS: LOSARTAN POTASSIUM 25 MG TABLET PO SCH ×2 (08:55→08:56)
[2018-05-27] MEDS: DOCUSATE SODIUM 100MG CAPSULE PO SCH ×2 (08:55→17:00)
[2018-05-27] MEDS: VANCOMYCIN 1250MG in DEXTROSE 5% WATER 250ML IV SCH ×2 (08:55→21:30)
[2018-05-27] MEDS: BISACODYL 10MG SUPP PR SCH (09:00)
[2018-05-27] MEDS ORDERED: NA PHOS,M-B/NA PHOS,DI-BA ENEMA 118ML PR PRN (09:00)
[2018-05-27] MEDS: ACETAMINOPHEN 325MG TABLET PO PRN (11:33)
[2018-05-27] MEDS: GABAPENTIN 100MG CAPSULE PO SCH (20:54)
[2018-05-27] MEDS: POLYETHYLENE GLYCOL 3350 (17GM) 1 DOSE PACK PO SCH (20:57)
[2018-05-28] VITALS: BP 117/84
[2018-05-28] MEDS: HYDROCODONE/ACETAMINOPHEN 5/325MG TABLET PO PRN ×2 (00:53→05:21)
[2018-05-28 04:00] VITALS: BP 107/61
[2018-05-28] MEDS: CEFEPIME 1,000 MG in DEXTROSE 5% WATER 50 ML IV SCH (05:09)
[2018-05-28] MEDS: GABAPENTIN 100MG CAPSULE PO SCH (05:37)
[2018-05-28 06:34] LABS: HEMATOCRIT. 27.3 % (42.0-52.0); MEAN CORPUSCULAR HEMOGLOBIN 30.1 pg (28.0-32.0); MEAN CORPUSCULAR VOLUME 91.7 fL (80.0-94.0); MEAN PLATELET VOLUME 7.8 fl (7.4-10.4); PLATELET 128 x1000/uL (130-400); RED BLOOD CELL COUNT 2.98 mill/uL (4.7-6.1); RED CELL DISTRIBUTION WIDTH 13.6 % (11.6-14.6)
[2018-05-28 06:41] LABS: CHLORIDE 99 mEq/L (98-107)
[2018-05-28 08:00] VITALS: BP_SYST 110; BP_SYST 137; BP_DIAS 56; BP_DIAS 80
[2018-05-28] MEDS: DOCUSATE SODIUM 100MG CAPSULE PO SCH (09:00)
[2018-05-28] MEDS: LOSARTAN POTASSIUM 25 MG TABLET PO SCH (09:00)
[2018-05-28] MEDS: BISACODYL 10MG SUPP PR SCH (09:00)
[2018-05-28] MEDS: VANCOMYCIN 1250MG in DEXTROSE 5% WATER 250ML IV SCH (09:55)
[2018-05-28 12:00] VITALS: BP 137/80
[2018-05-28 12:14] VITALS: BP 137/80
[2018-05-28 18:33] LABS: PLATELET ESTIMATE NORMAL
[2018-05-28] MEDS ORDERED: VANCOMYCIN 1 G PREMIX 200 ML IV SCH (21:00)
== END 2018-05-28 13:10 | disposition home or self-care (01) | DRG 919 ==
LOC: ER 02:46 → 6EST 07:18 → EDBEDREQ 07:37 → ENRESERV 07:45
PROVIDERS: ADMIT Internal Medicine Nephrology; ATTEND Internal Medicine Nephrology
DX: M96.831 Postprocedural hemorrhage of a musculoskeletal structure following other procedure (principal); G92 Toxic encephalopathy; G82.50 Quadriplegia, unspecified; E87.1 Hypo-osmolality and hyponatremia; F11.20 Opioid dependence, uncomplicated; D64.9 Anemia, unspecified; E66.01 Morbid (severe) obesity due to excess calories; I10 Essential (primary) hypertension; Y83.8 Other surgical procedures as the cause of abnormal reaction of the patient, or of later complication, without mention of misadventure at the time of the procedure; E87.8 Other disorders of electrolyte and fluid balance, not elsewhere classified; M48.02 Spinal stenosis, cervical region; R26.9 Unspecified abnormalities of gait and mobility; D69.6 Thrombocytopenia, unspecified; G89.29 Other chronic pain; Z82.49 Family history of ischemic heart disease and other diseases of the circulatory system; Z85.72 Personal history of non-Hodgkin lymphomas; Z90.49 Acquired absence of other specified parts of digestive tract; Z98.1 Arthrodesis status; Z79.899 Other long term (current) drug therapy; Z68.30 Body mass index [BMI] 30.0-30.9, adult
CPT/HCPCS: 36415; 70490; 74018; 80048; 80202; 83605; 85007; 85027; 85651; 86140; 93970; 96374; 97116; 97162; 97166; 97530; 99285; J0692; J2270; J2405; J2543; J3370; J7040; J7060; L0172

== ENCOUNTER 2020-08-13 10:34 | Emergency (ER) | payer OTHER ==
[~2020-08-13] VITALS: Ht 172.7 cm; Wt 100.0 kg
[~2020-08-13 10:34] MED LIST changes: +CHOL500051 PO; +GABA800T97 PO; +HYDR-4009 MT; -LABE200T28 PO; +LABE200T9 PO; +OXYC10SY PO; +OXYC10TA48 PO; +QUIN40TA14 PO; +SULF-293 MT
[2020-08-13] MEDS ORDERED: METHYLPREDNISOLONE SOD SUCC 125 MG/2 ML VIAL IV STA (10:53)
[2020-08-13] MEDS ORDERED: DIPHENHYDRAMINE 50MG/ML VIAL IV ONE (11:00)
[2020-08-13] MEDS ORDERED: FAMOTIDINE 20MG/2ML VIAL IV ONE (11:00)
[2020-08-13 12:19] LABS: HEMATOCRIT. 35.2 % (42.0-52.0); HEMOGLOBIN. 11.6 g/dL (14.0-18.0); MEAN CORPUSCULAR VOLUME 88.2 fL (80.0-94.0); MEAN PLATELET VOLUME 7.7 fl (7.4-10.4); PLATELET 127 x1000/uL (130-400); RED BLOOD CELL COUNT 3.99 mill/uL (4.7-6.1); RED CELL DISTRIBUTION WIDTH 14.9 % (11.6-14.6)
[2020-08-13 12:26] LABS: CHLORIDE 102 mEq/L (98-107)
[2020-08-13 12:30] LABS: ETHANOL BLOOD < 10 mg/dL
[2020-08-13 13:41] LABS: ATYPICAL LYMPHOCYTES 1
[2020-08-13 13:42] LABS: PLATELET ESTIMATE SLIGHTLY DECREASED
[2020-08-13 14:35] VITALS: BP 138/92
== END 2020-08-13 16:06 | disposition left against medical advice (07) ==
LOC: ER 10:34
DX: K08.89 Other specified disorders of teeth and supporting structures (principal); F17.290 Nicotine dependence, other tobacco product, uncomplicated; I10 Essential (primary) hypertension; Z90.49 Acquired absence of other specified parts of digestive tract; Z79.899 Other long term (current) drug therapy
CPT/HCPCS: 36415; 71045; 80053; 80320; 83690; 83880; 84484; 85025; 93005; 96374; 96375; 99285; J1200; J2930; J3490; G0480

== ENCOUNTER 2020-09-21 00:42 | Emergency (ER) | payer OTHER ==
[~2020-09-21] VITALS: Ht 182.9 cm; Wt 109.0 kg
[2020-09-21] MEDS ORDERED: ONDANSETRON HCL 4MG/2ML INJ IV ONE (01:15)
[2020-09-21] MEDS ORDERED: MORPHINE SULFATE 4 MG/ML CPJ (NOT FOR IM USE) IV ONE (01:15)
[2020-09-21 02:24] LABS: CHLORIDE 105 mEq/L (98-107)
[2020-09-21 02:39] LABS: HEMATOCRIT. 40.7 % (42.0-52.0); HEMOGLOBIN. 13.5 g/dL (14.0-18.0); MEAN CORPUSCULAR HEMOGLOBIN 28.8 pg (28.0-32.0); MEAN CORPUSCULAR VOLUME 87.2 fL (80.0-94.0); MEAN PLATELET VOLUME 7.6 fl (7.4-10.4); PLATELET 87 x1000/uL (130-400); RED BLOOD CELL COUNT 4.67 mill/uL (4.7-6.1); RED CELL DISTRIBUTION WIDTH 15.3 % (11.6-14.6)
[2020-09-21] MEDS ORDERED: GABAPENTIN 400MG CAPSULE PO ONE (03:15)
[2020-09-21] MEDS ORDERED: METHOCARBAMOL 500MG TABLET PO ONE (03:15)
[2020-09-21] MEDS ORDERED: MORPHINE SULFATE 2 MG/ML CPJ (NOT FOR IM USE) IV ONE (04:30)
[2020-09-21 05:18] LABS: PLATELET ESTIMATE DECREASED
[2020-09-21 05:56] LABS: CLARITY URINE CLEAR (CLEAR); COLOR URINE YELLOW (YELLOW); KETONES URINE NEGATIVE (NEGATIVE); LEUKOCYTE ESTERASE URINE TRACE (NEGATIVE); NITRITE URINE POSITIVE (NEGATIVE); OCCULT BLOOD URINE 1+ (NEGATIVE); PH URINE 5.5 (4.5-8.0); PROTEIN URINE 1+ (NEGATIVE); SPECIFIC GRAVITY URINE 1.025 (1.005-1.030); UROBILINOGEN URINE 0.2 E.U./dL (0.2-1.0)
[2020-09-21 11:00] VITALS: BP 122/78
[2020-09-21] MEDS ORDERED: CLONIDINE 0.1MG TABLET PO PRN (11:15)
[2020-09-21] MEDS ORDERED: ZOLPIDEM TARTRATE 5MG TABLET PO PRN (11:15)
[2020-09-21] MEDS ORDERED: HYDROCODONE/ACETAMINOPHEN 10/325MG TABLET PO PRN (11:15)
[2020-09-21] MEDS ORDERED: MAGNESIUM/ALUMINUM HYDROXIDE/SIMETHICONE 30ML UDC PO PRN (11:15)
[2020-09-21] MEDS ORDERED: ONDANSETRON HCL 4MG/2ML INJ IV PRN (11:15)
[2020-09-21] MEDS ORDERED: GUAIFENESIN 200MG/10ML SUGAR FREE UDC PO PRN (11:15)
[2020-09-21] MEDS ORDERED: ACETAMINOPHEN 325MG TABLET PO PRN ×2 (11:15)
[2020-09-21] MEDS ORDERED: ERGOCALCIFEROL 50000UNITS CAPSULE PO SCH (11:15)
[2020-09-21] MEDS ORDERED: SODIUM CHLORIDE 0.9% INJ 3ML FLUSH IVF SCH (14:00)
[2020-09-21] MEDS ORDERED: GABAPENTIN 300MG CAPSULE PO SCH (14:00)
[2020-09-24] MEDS ORDERED: LABE100T5 MT (11:26)
[2020-09-24] MEDS ORDERED: CHLO25TA2 MT (11:26)
== END 2020-09-21 11:12 | disposition left against medical advice (07) ==
LOC: ER 00:42 → EDBEDREQ 06:10 → EDBEDREQTM 06:10 → CANBEDREQ 11:10 → ER 11:12
DX: M54.5 Low back pain (principal); I10 Essential (primary) hypertension; R51.9 Headache, unspecified; Z88.8 Allergy status to other drugs, medicaments and biological substances; Z79.899 Other long term (current) drug therapy; Z90.49 Acquired absence of other specified parts of digestive tract; Z98.890 Other specified postprocedural states
CPT/HCPCS: 36415; 70450; 71250; 72131; 80053; 81003; 85025; 96374; 96375; 96376; 99285; J2270; J2405; Z7610

== ENCOUNTER 2020-12-27 08:50 | Emergency (ER) | payer OTHER, MEDICARE ==
[~2020-12-27] VITALS: Ht 185.4 cm; Wt 100.0 kg
[~2020-12-27 08:50] MED LIST changes: -CHOL500051 PO; +GABA-290 PO; -GABA800T PO; -GABA800T97 PO; -HYDR-4094 PO; -LABE200T9 PO; -OXYC10SY PO; -OXYC10TA48 PO; -QUIN1TAB16 PO; -QUIN40TA14 PO; -SULF-293 MT
[2020-12-27] MEDS ORDERED: KETOROLAC 30MG/ML VIAL IV STA (09:05)
[2020-12-27] MEDS ORDERED: PREDNISONE 20MG TABLET PO ONE (09:15)
[2020-12-27 09:50] LABS: HEMATOCRIT. 30.4 % (42.0-52.0); MEAN CORPUSCULAR HEMOGLOBIN 27.6 pg (28.0-32.0); MEAN PLATELET VOLUME 7.1 fl (7.4-10.4); PLATELET 108 x1000/uL (130-400); RED BLOOD CELL COUNT 3.62 mill/uL (4.7-6.1); RED CELL DISTRIBUTION WIDTH 15.7 % (11.6-14.6)
[2020-12-27 09:56] LABS: CHLORIDE 101 mEq/L (98-107)
[2020-12-27] MEDS ORDERED: MED4 MT (10:09)
[2020-12-27 10:28] VITALS: BP 128/79
[2020-12-27 13:00] LABS: PLATELET ESTIMATE DECREASED
[2020-12-27] MEDS ORDERED: CYCLOBENZAPRINE 10MG TABLET PO ONE (14:00)
== END 2020-12-27 10:29 | disposition left against medical advice (07) ==
LOC: ER 08:50
DX: M54.59 Other low back pain (principal); R20.8 Other disturbances of skin sensation; R53.1 Weakness; G89.29 Other chronic pain; R03.0 Elevated blood-pressure reading, without diagnosis of hypertension; F17.210 Nicotine dependence, cigarettes, uncomplicated; Z98.1 Arthrodesis status
CPT/HCPCS: 36415; 80053; 85025; 96374; 99283; J1885; J7512

== ENCOUNTER 2021-01-16 22:15 | Inpatient (IN) | payer OTHER, MEDICARE ==
[~2021-01-16] VITALS: Ht 188 cm; Wt 116.1 kg
[~2021-01-16 22:15] MED LIST changes: +MED4 MT
[2021-01-16] MEDS ORDERED: GABAPENTIN 300MG CAPSULE PO ONE (23:15)
[2021-01-16] MEDS ORDERED: HYDROCODONE/ACETAMINOPHEN 5/325MG TABLET PO ONE (23:15)
[2021-01-17] VITALS (76 sets, daily range): BP systolic 67–151; BP diastolic 37–99
[2021-01-17] MEDS ORDERED: MORPHINE SULFATE 4 MG/ML CPJ (NOT FOR IM USE) IV ONE (01:00)
[2021-01-17] MEDS ORDERED: ONDANSETRON HCL 4MG/2ML INJ IV ONE (01:00)
[2021-01-17 01:15] LABS: HEMATOCRIT. 30.7 % (42.0-52.0); HEMOGLOBIN. 9.9 g/dL (14.0-18.0); MEAN CORPUSCULAR HEMOGLOBIN 27.9 pg (28.0-32.0); MEAN CORPUSCULAR VOLUME 86.4 fL (80.0-94.0); MEAN PLATELET VOLUME 7.1 fl (7.4-10.4); PLATELET 109 x1000/uL (130-400); RED BLOOD CELL COUNT 3.55 mill/uL (4.7-6.1); RED CELL DISTRIBUTION WIDTH 16.1 % (11.6-14.6)
[2021-01-17] MEDS ORDERED: MORPHINE SULFATE 2 MG/ML CPJ (NOT FOR IM USE) IV SCH (01:15)
[2021-01-17 01:22] LABS: CHLORIDE 102 mEq/L (98-107)
[2021-01-17 01:26] LABS: INR 1.1; PROTHROMBIN TIME 11.4 sec (9.6-11.0)
[2021-01-17] MEDS ORDERED: METHOCARBAMOL 500MG TABLET PO ONE (02:45)
[2021-01-17] MEDS ORDERED: MORPHINE SULFATE 2 MG/ML CPJ (NOT FOR IM USE) IV ONE (02:45)
[2021-01-17 02:53] LABS: CLARITY URINE CLEAR (CLEAR); COLOR URINE YELLOW (YELLOW); KETONES URINE NEGATIVE (NEGATIVE); LEUKOCYTE ESTERASE URINE 1+ (NEGATIVE); NITRITE URINE NEGATIVE (NEGATIVE); OCCULT BLOOD URINE TRACE (NEGATIVE); PH URINE 5.5 (4.5-8.0); PROTEIN URINE NEGATIVE (NEGATIVE); UROBILINOGEN URINE 0.2 E.U./dL (0.2-1.0)
[2021-01-17] MEDS ORDERED: VANCOMYCIN 1 G PREMIX 200 ML IV SCH (03:00)
[2021-01-17] MEDS ORDERED: CEFEPIME 2,000 MG in DEXT 5% WATER 100 ML IV SCH (03:00)
[2021-01-17] MEDS ORDERED: DIPHENHYDRAMINE 50MG/ML VIAL IV ONE (03:45)
[2021-01-17] MEDS ORDERED: DEXAMETHASONE 10 MG/ML VIAL IV ONE (03:45)
[2021-01-17] MEDS ORDERED: ETOMIDATE 2MG/ML 10ML VIAL IV ONE (04:00)
[2021-01-17] MEDS ORDERED: VECURONIUM BROMIDE 10 MG/VIAL IV ONE (04:00)
[2021-01-17 05:08] LABS: PLATELET ESTIMATE DECREASED
[2021-01-17] MEDS ORDERED: IOHEXOL-350 100 ML BOTTLE ONE (06:10)
[2021-01-17] MEDS ORDERED: PHENYLEPHRINE 100 MG in DEXT 5% WATER 240 ML IV PRN (07:30)
[2021-01-17] MEDS ORDERED: FENTANYL CITRATE/PF 2,500 MCG in SODIUM CHLORIDE 0.9% 200 ML IV PRN ×2 (07:30→07:45)
[2021-01-17] MEDS ORDERED: PROPOFOL 10MG/ML 100ML 100 ML IV PRN (07:30)
[2021-01-17] MEDS ORDERED: GADOTERATE MEGLUMINE 5 MMOL/10 ML VIAL IV ONE (07:30)
[2021-01-17] MEDS ORDERED: DIPHENHYDRAMINE 50MG/ML VIAL IV PRN (07:45)
[2021-01-17] MEDS ORDERED: DOCUSATE SODIUM 100MG CAPSULE PO PRN (07:45)
[2021-01-17] MEDS ORDERED: CLONIDINE 0.1MG TABLET PO PRN (07:45)
[2021-01-17] MEDS ORDERED: HYDRALAZINE 20MG/ML VIAL IV PRN (07:45)
[2021-01-17] MEDS ORDERED: LORAZEPAM 2MG/ML CPJ IV PRN (07:45)
[2021-01-17] MEDS: ENOXAPARIN 30MG/0.3ML SYR SUBCUT SCH ×2 (07:45→20:34)
[2021-01-17] MEDS ORDERED: MIDAZOLAM HCL 100 MG in SODIUM CHLORIDE 0.9% 80 ML IV PRN (07:45)
[2021-01-17] MEDS ORDERED: ACETAMINOPHEN 325MG TABLET PO PRN (07:45)
[2021-01-17] MEDS ORDERED: GUAIFENESIN 200MG/10ML SUGAR FREE UDC PO PRN (07:45)
[2021-01-17] MEDS ORDERED: MAGNESIUM/ALUMINUM HYDROXIDE/SIMETHICONE 30ML UDC PO PRN (07:45)
[2021-01-17] MEDS ORDERED: ONDANSETRON HCL 4MG/2ML INJ IV PRN (07:45)
[2021-01-17] MEDS ORDERED: IPRATROPIUM/ALBUTEROL 0.5-3(2.5)MG/3ML NEB HHN PRN (07:45)
[2021-01-17] MEDS: PHENYLEPHRINE 100 MG in DEXT 5% WATER 240 ML IV PRN ×2 (08:21→16:42)
[2021-01-17] MEDS: PROPOFOL 10MG/ML 100ML 100 ML IV SCH ×3 (08:22→13:01)
[2021-01-17 09:06] LABS: BG BASE EXCESS -7.6 mmol/L (-2.0-2.0); BG DEOXYHEMOGLOBIN 0.2 % (0.0-5.0); BG FRACTION INSPIRED OXYGEN 100; BG HCO3 ACT 18.6 mmol/L (22.0-26.0); BG METHEMOGLOBIN 0.4 % (0.0-1.5); BG OXYGEN SATURATION 99.8 % (92.0-98.5); BG OXYHEMOGLOBIN 98.4 % (94.0-97.0); BG PCO2 40.2 mmHg (35.0-45.0); BG PH 7.282 (7.350-7.450); BG PO2 463.5 mmHg (75.0-100.0); BG SAMPLE SITE RIGHT RADIAL; BG VENT MODE VENT - AC
[2021-01-17] MEDS: METHYLPREDNISOLONE SOD SUCC 125 MG/2 ML VIAL IV SCH ×2 (09:20→13:37)
[2021-01-17] MEDS ORDERED: SODIUM BICARBONATE 8.4% 1 MEQ/ML 50ML SYR IV NR (09:30)
[2021-01-17 11:38] LABS: T4 FREE 0.83 ng/dL (0.76-1.46)
[2021-01-17] MEDS ORDERED: NALOXONE HCL 0.4MG/ML VIAL IV PRN (13:15)
[2021-01-17] MEDS: SODIUM CHLORIDE 0.9% INJ 3ML FLUSH IVF SCH ×2 (13:37→21:25)
[2021-01-17] MEDS: CEFTRIAXONE 1,000 MG in DEXTROSE 5% WATER 50 ML IV SCH (16:40)
[2021-01-17] MEDS: PROPOFOL 10MG/ML 100ML 100 ML IV PRN ×4 (16:41→23:58)
[2021-01-17 20:25] LABS: CREATINE KINASE MB FRACTION 4.3 ng/mL (0.5-3.6)
[2021-01-17] MEDS: IPRATROPIUM/ALBUTEROL 0.5-3(2.5)MG/3ML NEB HHN SCH (20:33)
[2021-01-18] VITALS (69 sets, daily range): BP systolic 96–147; BP diastolic 61–107
[2021-01-18] MEDS: IPRATROPIUM/ALBUTEROL 0.5-3(2.5)MG/3ML NEB HHN SCH ×4 (00:54→20:47)
[2021-01-18] MEDS: PROPOFOL 10MG/ML 100ML 100 ML IV PRN ×4 (02:20→09:37)
[2021-01-18 05:51] LABS: HEMATOCRIT. 38.1 % (42.0-52.0); HEMOGLOBIN. 12.3 g/dL (14.0-18.0); MEAN CORPUSCULAR HEMOGLOBIN 27.5 pg (28.0-32.0); MEAN CORPUSCULAR VOLUME 85.1 fL (80.0-94.0); MEAN PLATELET VOLUME 7.8 fl (7.4-10.4); PLATELET 173 x1000/uL (130-400); RED BLOOD CELL COUNT 4.48 mill/uL (4.7-6.1); RED CELL DISTRIBUTION WIDTH 16.7 % (11.6-14.6)
[2021-01-18] MEDS: SODIUM CHLORIDE 0.9% INJ 3ML FLUSH IVF SCH ×3 (05:53→22:00)
[2021-01-18 06:02] LABS: CHLORIDE 101 mEq/L (98-107)
[2021-01-18 06:16] LABS: CREATINE KINASE 83 IU/L (39-308)
[2021-01-18 06:21] LABS: CREATINE KINASE MB FRACTION < 1.0 ng/mL (0.5-3.6)
[2021-01-18] MEDS: PANTOPRAZOLE SODIUM 40 MG/VIAL IV SCH (08:49)
[2021-01-18] MEDS: ENOXAPARIN 30MG/0.3ML SYR SUBCUT SCH ×2 (08:50→21:02)
[2021-01-18 09:07] LABS: BG BASE EXCESS 0.4 mmol/L (-2.0-2.0); BG CARBOXYHEMOGLOBIN 0.6 % (0.5-1.5); BG DEOXYHEMOGLOBIN 1.1 % (0.0-5.0); BG FRACTION INSPIRED OXYGEN 40; BG HCO3 ACT 24.1 mmol/L (22.0-26.0); BG METHEMOGLOBIN 0.2 % (0.0-1.5); BG OXYGEN SATURATION 98.9 % (92.0-98.5); BG OXYHEMOGLOBIN 98.1 % (94.0-97.0); BG PCO2 35.9 mmHg (35.0-45.0); BG PH 7.445 (7.350-7.450); BG PO2 139.1 mmHg (75.0-100.0); BG SAMPLE SITE RIGHT RADIAL; BG TOTAL RESPIRATORY RATE 20 b/min; BG VENT MODE VENT - AC
[2021-01-18] MEDS: SODIUM CHLORIDE 0.9% 1,000 ML IV SCH ×2 (09:41→23:01)
[2021-01-18 13:17] LABS: BG BASE EXCESS 0.9 mmol/L (-2.0-2.0); BG CARBOXYHEMOGLOBIN 0.3 % (0.5-1.5); BG DEOXYHEMOGLOBIN 3.7 % (0.0-5.0); BG FRACTION INSPIRED OXYGEN 40; BG HCO3 ACT 24.9 mmol/L (22.0-26.0); BG METHEMOGLOBIN 0.2 % (0.0-1.5); BG OXYGEN SATURATION 96.3 % (92.0-98.5); BG OXYHEMOGLOBIN 95.8 % (94.0-97.0); BG PCO2 37.6 mmHg (35.0-45.0); BG PH 7.439 (7.350-7.450); BG PO2 83.9 mmHg (75.0-100.0); BG SAMPLE SITE LEFT RADIAL; BG TOTAL HEMOGLOBIN 12.3 g/dL (12.0-18.0); BG TOTAL RESPIRATORY RATE 19 b/min; BG VENT MODE VENT - CPAP
[2021-01-18 14:34] LABS: PLATELET ESTIMATE NORMAL
[2021-01-18] MEDS: CEFTRIAXONE 1,000 MG in DEXTROSE 5% WATER 50 ML IV SCH (15:41)
[2021-01-18] MEDS: HYDROCODONE/ACETAMINOPHEN 5/325MG TABLET PO PRN ×2 (17:44→22:22)
[2021-01-18] MEDS ORDERED: labetalol (18:45)
[2021-01-18] MEDS ORDERED: HYDR-4009 MT (18:45)
[2021-01-18] MEDS ORDERED: CHLO25TA2 PO (18:45)
[2021-01-18] MEDS: MORPHINE SULFATE 2 MG/ML CPJ (NOT FOR IM USE) IV PRN (19:47)
[2021-01-19] VITALS (9 sets, daily range): BP systolic 101–128; BP diastolic 62–84
[2021-01-19] MEDS: MORPHINE SULFATE 2 MG/ML CPJ (NOT FOR IM USE) IV PRN ×4 (01:58→17:45)
[2021-01-19] MEDS: IPRATROPIUM/ALBUTEROL 0.5-3(2.5)MG/3ML NEB HHN SCH ×3 (02:07→13:30)
[2021-01-19] MEDS: SODIUM CHLORIDE 0.9% INJ 3ML FLUSH IVF SCH ×2 (05:08→14:24)
[2021-01-19] MEDS: PANTOPRAZOLE SODIUM 40 MG/VIAL IV SCH (08:07)
[2021-01-19] MEDS: ENOXAPARIN 30MG/0.3ML SYR SUBCUT SCH (08:07)
[2021-01-19] MEDS ORDERED: SODIUM CHLORIDE 0.9% 1,000 ML IV SCH (09:30)
[2021-01-19] MEDS: HYDROCODONE/ACETAMINOPHEN 5/325MG TABLET PO PRN (09:39)
[2021-01-19 11:12] LABS: MEAN CORPUSCULAR HEMOGLOBIN 27.4 pg (28.0-32.0); MEAN CORPUSCULAR VOLUME 85.3 fL (80.0-94.0); MEAN PLATELET VOLUME 7.8 fl (7.4-10.4); PLATELET 104 x1000/uL (130-400); RED BLOOD CELL COUNT 3.29 mill/uL (4.7-6.1); RED CELL DISTRIBUTION WIDTH 16.4 % (11.6-14.6)
[2021-01-19 11:16] LABS: CHLORIDE 105 mEq/L (98-107)
[2021-01-19] MEDS: CEFTRIAXONE 1,000 MG in DEXTROSE 5% WATER 50 ML IV SCH (14:23)
[2021-01-19 16:00] LABS: PLATELET ESTIMATE SLIGHTLY DECREASED
== END 2021-01-19 17:40 | disposition home or self-care (01) | DRG 917 ==
LOC: ER 22:15 → CVICU 01-17 04:55 → ENRESERV 01-17 05:37 → 8WST 01-19 01:18
PROVIDERS: ADMIT Internal Medicine; ATTEND Internal Medicine
PROC: 5A1945Z Respiratory Ventilation, 24-96 Consecutive Hours (ICD-10-PCS; principal; 2021-01-17)
PROC: 05H633Z Insertion of Infusion Device into Left Subclavian Vein, Percutaneous Approach (ICD-10-PCS; 2021-01-17)
PROC: B547ZZA Ultrasonography of Left Subclavian Vein, Guidance (ICD-10-PCS; 2021-01-17)
PROC: 0BH17EZ Insertion of Endotracheal Airway into Trachea, Via Natural or Artificial Opening (ICD-10-PCS; 2021-01-17)
DX: T40.601A Poisoning by unspecified narcotics, accidental (unintentional), initial encounter (principal); J96.00 Acute respiratory failure, unspecified whether with hypoxia or hypercapnia; C85.90 Non-Hodgkin lymphoma, unspecified, unspecified site; N39.0 Urinary tract infection, site not specified; R65.10 Systemic inflammatory response syndrome (SIRS) of non-infectious origin without acute organ dysfunction; D64.9 Anemia, unspecified; D69.6 Thrombocytopenia, unspecified; E78.5 Hyperlipidemia, unspecified; G89.4 Chronic pain syndrome; I10 Essential (primary) hypertension; M54.50 Low back pain, unspecified; M48.02 Spinal stenosis, cervical region; R79.82 Elevated C-reactive protein (CRP); R77.8 Other specified abnormalities of plasma proteins; I95.2 Hypotension due to drugs; F17.210 Nicotine dependence, cigarettes, uncomplicated; T42.75XA Adverse effect of unspecified antiepileptic and sedative-hypnotic drugs, initial encounter; N28.9 Disorder of kidney and ureter, unspecified; Z98.1 Arthrodesis status; Z88.8 Allergy status to other drugs, medicaments and biological substances; Z79.899 Other long term (current) drug therapy; Z79.891 Long term (current) use of opiate analgesic; Y92.89 Other specified places as the place of occurrence of the external cause
CPT/HCPCS: 31500; 36415; 36600; 71045; 71275; 72158; 76937; 80048; 80053; 80061; 81003; 82375; 82550; 82553; 82805; 82962; 83036; 83605; 83880; 84439; 84443; 84478; 84484; 85025; 85379; 85651; 86141; 87070; 87077; 87186; 93005; 93306; 93970; 94002; 94003; 94640; 99285; A9577; C1725; C1893; C9113; J0692; J0696; J1100; J1200; J1650; J2270; J2370; J2405; J2704; J2930; J3010; J3370; J3490; J7030; J7050; J7060; Q9967

== ENCOUNTER 2024-09-08 11:43 | Emergency (ER) | payer OTHER, MEDICARE ==
[~2024-09-08] VITALS: Ht 182.9 cm; Wt 109.0 kg
[~2024-09-08 11:43] MED LIST changes: +CHLO25TA2 PO; -MED4 MT; +labetalol
[2024-09-08 11:48] VITALS: O2SAT 98
[2024-09-08 14:00] VITALS: BP 141/81; PULSE 74; RESP 18; TEMP 36.7; O2SAT 97
== END 2024-09-08 14:18 | disposition home or self-care (01) ==
LOC: ER 11:43
DX: M54.50 Low back pain, unspecified (principal); I10 Essential (primary) hypertension; Z90.49 Acquired absence of other specified parts of digestive tract; Z79.899 Other long term (current) drug therapy; Z88.8 Allergy status to other drugs, medicaments and biological substances
CPT/HCPCS: 72070; 72100; 99284